=== PATIENT | male | born 1995 | race Caucasian/White ===

== ENCOUNTER 2017-12-10 15:27 | Emergency (ER) | payer BC ==
[2017-12-10 15:39] VITALS: BP 119/97; PULSE 90; RESP 16; TEMP 98.2; O2SAT 96
--- NOTE | 2017-12-10 16:03 | EDPHY ---
General Time Seen by Provider: 12/10/17 15:49 Narrative: CHIEF COMPLAINT: Skiing injuries HISTORY OF PRESENT ILLNESS: Patient complains of head injury and back injury while skiing. This occurred on Friday afternoon. He was skiing at [place]. He said that he lost control, slid on his back in strike his head on a tree. He did not lose consciousness. States that he felt some pain in his upper back and a mild headache in the occiput. He continues skiing that day as well as the next day. Over the course of the past few days he has had increasing occipital headache. He has had some mild upper back pain. No vomiting but some nausea. Mild neck pain but no stiffness. No chest pain or shortness of breath. No sensory complaints in the arms or legs. No weakness or motor complaints. No saddle anesthesia. No incontinence of bowel or bladder. He has been able to perform his daily activities without difficulty. He is here because his sister was concerned as there was damage to the helmet and he does have an ongoing headache. No other associated complaints or modifying factors. REVIEW OF SYSTEMS: Ten systems reviewed and are negative unless otherwise noted in the HPI PCP: None locally SPECIALISTS: None PAST MEDICAL HISTORY: Denies PAST SURGICAL HISTORY: No recent surgeries SOCIAL HISTORY: Nonsmoker. Occasional alcohol use. No drug use. [employer] student. Originally from [facility] FAMILY HISTORY: Noncontributory EXAMINATION General Appearance: Alert, no distress Head: normocephalic, atraumatic Eyes: Pupils equal and round, no conjunctival pallor or injection. EOMs intact. No hyphema or subconjunctival hemorrhage. No nystagmus ENT, Mouth: Mucous membranes moist Neck: Normal inspection, supple, non-tender Respiratory: Lungs are clear to auscultation. No wheezing, rhonchi or crackles Cardiovascular: Regular rate and rhythm. No murmur. Symmetric radial pulses 2 + symmetric DP pulses 2+ Gastrointestinal: Abdomen is soft and nontender Back: Soft tissue tenderness in the thoracic back. No midline tenderness at any level. No crepitus or deformity. Neurological: GCS 15. Cranial nerves 2-12 grossly intact. A&O, nonfocal, normal gait. No pronator drift. Normal finger to nose. Skin: Warm and dry, no rash no petechiae or purpura Extremities: Nontender, no pedal edema. Symmetric range of motion Psychiatric: Mood and affect normal DIFFERENTIAL DIAGNOSES: Including but not limited to closed head injury, concussion, intracranial hemorrhage, cerebral edema, basilar skull fracture MDM: 4:00 p.m. Closed head injury with likely mild concussion. Patient did not have any loss of consciousness and has no focal findings on exam. His neuro exam is well within normal limits. No Arriaga signs or raccoon eyes. His neck is supple and without meningismus. He likely has some muscle spasm of the soft tissue of the back with no bony tenderness or obvious injuries. Using [place] CT head rules there is no indication for emergent CT scan of the head. Patient is comfortable with not having this done as well. I do feel he is stable for discharge home with anti-inflammatories and short course of muscle relaxant. I will provide the information for Dr. Tobin and follow up as an outpatient. He may also follow up with [facility] at . We discussed strict ED precautions for any sudden change in headache, neck stiffness, vomiting, visual disturbance, bruising around the eyes. We discussed avoiding dangerous activities until cleared for return to sports or skiing by primary care physician or specialist. He is comfortable with this plan and discharged home stable condition SUPERVISION: This patient was independently evaluated without direct involvement of or examination by the attending physician. - History Smoking Status: Never smoked - Objective Vital Signs: Initial Vital Signs Temperature (C) 98.2 F 12/10/17 15:36 Heart Rate 90 12/10/17 15:36 Respiratory Rate 16 12/10/17 15:36 Blood Pressure 119/97 H 12/10/17 15:36 O2 Sat (%) 96 12/10/17 15:36 O2 Delivery Mode Room Air Allergies/Adverse Reactions: No Known Allergies Allergy (Unverified 12/10/17 15:36) Home Medications: Medication Instructions Recorded Cyclobenzaprine [Flexeril 10 MG 10 mg PO TID PRN #7 tab 12/10/17 (*)] Departure - Departure Disposition: Home, Routine, Self-Care Clinical Impression: Closed head injury with concussion Qualifiers: Encounter type: initial encounter Loss of consciousness presence/duration: without LOC Qualified Code(s): S06.0X0A - Concussion without loss of consciousness, initial encounter Condition: Good Instructions: Concussion (ED), Head Injury (ED) Additional Instructions: 1. Ibuprofen 400-600 mg every 6-8 hours as needed for the next 5-7 days and then stop 2. Flexeril as prescribed as needed for muscle spasm and back pain 3. ED precautions as discussed 4. Contact Dr. Tobin for outpatient follow up with your likely concussion Referrals: Faina Tobin MD [Medical Doctor] - As per Instructions [facility],. [Clinic] - As per Instructions Prescriptions: Cyclobenzaprine [Flexeril 10 MG (*)] 10 mg PO TID PRN #7 tab PRN Reason: Spasms
== END 2017-12-10 16:13 | disposition home or self-care (01) ==
DX: S06.0X0A Concussion without loss of consciousness, initial encounter (principal); V00.328A Other snow-ski accident, initial encounter; Y99.8 Other external cause status; Y93.23 Activity, snow (alpine) (downhill) skiing, snowboarding, sledding, tobogganing and snow tubing

== ENCOUNTER 2017-12-13 11:36 | Emergency (ER) | payer BC ==
[2017-12-13 11:42] VITALS: RESP 16; TEMP 97.5
[2017-12-13] MEDS ORDERED: ONDANSETRON DISINTEGRATING 4 MG TAB PO ONE (12:00)
[2017-12-13] MEDS ORDERED: HYDROCODONE/APAP 5/325 TAB PO ONE (12:00)
--- NOTE | 2017-12-13 12:01 | EDPHY ---
H & P Time Seen by Provider: 12/13/17 11:53 HPI/ROS: CHIEF COMPLAINT: Headache with nausea HISTORY OF PRESENT ILLNESS: 22-year-old man fell skiing at [place] 8 days ago and slid down into a tree. He did not lose consciousness. He presents to the emergency department on 12/10 was diagnosed with concussion. He presents with today continued diffuse headache which is moderate, associated with"weird vision"and worse with bright lights. It is associated with nausea decreased oral intake but no vomiting. No change in mentation or ataxia or vertigo. No neck pain. REVIEW OF SYSTEMS: Eye: HPI no diplopia ENT: no sore throat Cardiac: no chest pain or syncope Pulmonary: no cough or SOB Abdomen: HPI no abdominal pain Musculoskeletal: no back pain or neck pain Skin: no rash Neuro: HPI, no weakness or numbness in hands or feet or arms or legs Constitutional: no fever : no urinary symptoms A comprehensive 10 point review of systems is otherwise negative aside from elements mentioned in the history of present illness. 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 Eyes: No scleral icterus. Pupils 4 mm reactive extraocular motion intact. ENT, Mouth: Normal mucous membranes. No hemotympanum. Respiratory: Normal respiratory effort, breath sounds equal, lungs are clear to auscultation. Cardiovascular: Regular rate and rhythm. Gastrointestinal: Abdomen is soft and non tender. Neurological: Alert, face symmetric, normal motor and sensory in extremities. No pronator drift and [id number] normal bilaterally, fluent speech. Ambulatory. Skin: Warm and dry, no rashes. Musculoskeletal: No midline spinal tenderness. Psychiatric: Not agitated. Emergency Department course/MDM: With hydrocodone and Zofran ODT. CT head discussed and consented for persistent symptoms and worsening symptoms 1 week later after head trauma with history of previous intracranial hemorrhage. Cervical spine cleared clinically. 1307: CT discussed with Mouna and Michael. Mouna reviewed CT at this time, his opinion: negative for traumatic bleed, recommends followup in office. Results discussed with the patient. Likely concussion from his fall 8 days ago. Neurosurgical follow-up in the office for his CT scan abnormality. Smoking Status: Never smoked Constitutional: Initial Vital Signs Temperature (C) 36.4 C 12/13/17 11:39 Heart Rate 68 12/13/17 11:39 Respiratory Rate 16 12/13/17 11:39 Blood Pressure 125/72 H 12/13/17 11:39 O2 Sat (%) 97 12/13/17 11:39 O2 Delivery Mode Room Air Allergies/Adverse Reactions: No Known Allergies Allergy (Unverified 12/10/17 15:36) Home Medications: Medication Instructions Recorded Cyclobenzaprine [Flexeril 10 MG 10 mg PO TID PRN #7 tab 12/10/17 (*)] Ondansetron Odt [Zofran Odt] 4 mg PO Q4PRN #10 tab 12/13/17 Medical Decision Making - Diagnostics Imaging Results: Imaging Impressions Head CT 12/13/17 12:00 Impression: 1. No acute or subacute posttraumatic abnormality identified. 2. Midline intraventricular tumor, doubt blood clot. Differential diagnosis includes meningioma, slightly atypically positioned colloid cyst, subependymoma giant cell astrocytoma and aneurysm. Outside imaging studies would be helpful to review. If further characterization is important, then recommend MRI, without and with contrast. Results called to Dr. Boyle at 12:53. General information for patients regarding this examination can be found at [email or web address]. If you have questions or comments about this report, please contact me at [phone] (hospital) or [phone] (cell). Imaging: Discussed imaging studies w/ bingo caller Radiologist Differential Diagnosis: Differential diagnosis considered for head injury including but not limited to concussion, skull fracture, intraparenchymal contusion, subarachnoid, subdural and epidural hematoma. - Data Points Medications Given: Discontinued Medications Hydrocodone Bitart/Acetaminophen ([place] 5/325) 1 tab PO EDNOW ONE Stop: 12/13/17 12:01 Last Admin: 12/13/17 12:03 Dose: 1 tab Ibuprofen (Motrin) 600 mg PO EDNOW ONE Stop: 12/13/17 13:13 Last Admin: 12/13/17 13:32 Dose: 600 mg Ondansetron HCl (Zofran Odt) 4 mg PO EDNOW ONE Stop: 12/13/17 12:01 Last Admin: 12/13/17 12:03 Dose: 4 mg Departure - Departure Disposition: Home, Routine, Self-Care Clinical Impression: Concussion Qualifiers: Encounter type: subsequent encounter Loss of consciousness presence/duration: without LOC Qualified Code(s): S06.0X0D - Concussion without loss of consciousness, subsequent encounter Condition: Good Instructions: Concussion (ED), Post Concussion Syndrome (ED) Additional Instructions: Please see Dr. Freire in the office to followup on your CT scan. Referrals: Faina Tobin MD [Medical Doctor] - As per Instructions Adolfo Freire MD [Medical Doctor] - As per Instructions Prescriptions: Ondansetron Odt [Zofran Odt] 4 mg PO Q4PRN #10 tab
[2017-12-13] MEDS ORDERED: IBUPROFEN 600 MG TAB PO ONE (13:12)
[2017-12-13 13:37] VITALS: BP 117/66; PULSE 77; O2SAT 100
== END 2017-12-13 13:35 | disposition home or self-care (01) ==
DX: S06.0X0D Concussion without loss of consciousness, subsequent encounter (principal); V00.322D Snow-skier colliding with stationary object, subsequent encounter